=== PATIENT | female | born 1935 | race Caucasian/White ===

== ENCOUNTER → 2017-06-22 | Outpatient (CLI) | payer MEDICARE, OTHER ==
[2014-03-25 14:55] VITALS: BP 96/56
[~2017-06-22] MED LIST: ALPR0.25 PO; CYCL5TAB PO; DULO60CA6 PO; FURO-69 PO; GABA-585 PO; GABA-586 PO; LISI-334 PO; MELO15TA23 PO; METO25TA4 PO; OXYC10TA45 PO
--- NOTE | 2017-06-22 19:40 | EEG ---
DATE OF SERVICE: 06/22/2017 EEG NUMBER: [id number]. OBJECTIVE: This is a 81-year-old female patient with history of memory loss and confusional episode. EEG was requested to evaluate cerebral activity. METHODS: Twenty electrodes were applied according to the international 10-20 electrode placement system. EKG monitoring, hyperventilation, intermittent photic stimulation. Monopolar and bipolar montages are routinely utilized. The record was obtained on a digital system with video monitoring. FINDINGS: 1. Background: The patient was recorded in the awake, drowsy and sleep states. The overall background amplitude is 10-20 microvolts. A posterior dominant rhythm of 8-9 Hz is observed. 2. Abnormalities: No specific epileptiform discharge or electrographic seizure is seen. No focal or diffuse slowing. 3. Activation: Hyperventilation was performed with good efforts and normal response. Intermittent photic stimulation was performed with photic driving. IMPRESSION: This EEG is a normal study for the awake, drowsy and sleep states. No focal, lateralizing, specific epileptiform discharge or electrographic seizure is seen. AVELINO MALONE MD DR: HUSEYIN/vanessa JOB#: [id number] / [id number] JOSEMANUEL
== END | disposition home or self-care (01) ==
LOC: RT 08:44
PROVIDERS: ATTEND Psychiatry & Neurology Neurology
DX: F31.89 Other bipolar disorder (principal); R06.4 Hyperventilation; R41.3 Other amnesia
CPT/HCPCS: 95816

== ENCOUNTER → 2018-12-12 | Outpatient (CLI) | payer MEDICARE ==
[2014-03-25 14:55] VITALS: BP 96/56
[~2018-12-12] MED LIST changes: -GABA-586 PO; +GABA300C18 PO; -OXYC10TA45 PO; +OXYC10TA46 PO
--- NOTE | 2018-12-22 18:36 | EEG ---
DATE OF SERVICE: 12/12/2018 ELECTROENCEPHALOGRAM NUMBER: [id number] OBJECTIVE: This is an 83-year-old female patient with history of memory loss and cognitive function decline. EEG was requested to evaluate cerebral activity. METHODS: Twenty electrodes were applied according to the international 10-20 electrode placement system. EKG monitoring, hyperventilation, intermittent photic stimulation, monopolar and bipolar montages are routinely utilized. The record was obtained on a digital system with video monitoring. FINDINGS: 1. Background: The patient was recorded in the awake, drowsy and sleep states. The overall background amplitude is 10-20 microvolts. A posterior dominant rhythm of 8 Hz is observed. 2. Abnormalities: No specific epileptiform discharge or electrographic seizure is seen. No focal or diffuse slowing. 3. Activation: Hyperventilation was performed with poor efforts. Intermittent photic stimulation was performed with photic driving. IMPRESSION: This electroencephalogram is within the broad normal limits of the study for the awake, drowsy and sleep states. No focal, lateralizing, specific epileptiform discharge or electrographic seizure is seen. AVELINO MALONE MD DR: HUSEYIN/vanessa JOB#: [id number] / [id number] JOSEMANUEL
== END | disposition home or self-care (01) ==
LOC: RT 08:10
PROVIDERS: ATTEND Family Medicine
DX: R41.3 Other amnesia (principal)
CPT/HCPCS: 95816

== ENCOUNTER → 2019-01-30 | Outpatient (CLI) | payer MEDICARE ==
[2014-03-25 14:55] VITALS: BP 96/56
[2019-01-30 13:26] LABS: ALBUMIN 3.6 g/dL (3.4-5.0); ALBUMIN/GLOBULIN RATIO 0.9 (1.0-1.7); CALCIUM 9.5 mg/dL (8.5-10.1); CREATININE 0.9 mg/dL (0.6-1.0); GFR 60.1; POTASSIUM 4.2 mmol/L (3.5-5.1); TOTAL BILIRUBIN 0.3 mg/dL (0.2-1.0); TOTAL PROTEIN 7.7 g/dL (6.4-8.2)
[2019-01-30 13:37] LABS: BASO # 0.1 x10^3/uL (0.0-0.2); BASO % 1 % (0-3); EOS # 0.2 x10^3/uL (0.0-0.7); EOS % 4 % (0-3); HEMATOCRIT 37.1 % (36.0-47.0); HEMOGLOBIN 12.1 g/dL (12.0-15.5); LYMPH # 0.9 x10^3/uL (1.0-4.8); LYMPH % 18 % (24-48); MEAN CORPUSCULAR HEMOGLOBIN 27 pg (25-35); MEAN CORPUSCULAR HGB CONC 33 g/dL (31-37); MEAN CORPUSCULAR VOLUME 83 fL (79-100); MONO # 0.5 x10^3/uL (0.0-1.1); MONO % 10 % (0-9); NEUT # 3.3 x10^3uL (1.8-7.7); NEUT % 68 % (31-73); PLATELET COUNT 231 x10^3/uL (140-400); RED BLOOD COUNT 4.46 x10^6/uL (3.50-5.40); RED CELL DISTRIBUTION WIDTH 16.7 % (11.5-14.5)
== END | disposition home or self-care (01) ==
LOC: LAB 12:09
PROVIDERS: ATTEND Psychiatry & Neurology Neurology
DX: R41.3 Other amnesia (principal); Z79.899 Other long term (current) drug therapy
CPT/HCPCS: 36415; 80053; 82306; 82607; 84443; 85025